=== PATIENT | male | born 1950 | race Caucasian/White ===

== ENCOUNTER 2017-01-26 04:27 | Inpatient (IN) | payer OTHER ==
[2017-01-26] VITALS (15 sets, daily range): BP systolic 86–130; BP diastolic 55–78
[~2017-01-26] VITALS: Ht 157.5 cm; Wt 64.9 kg
[~2017-01-26 04:27] MED LIST: ADVAIR HFA120 INHALA IH; AMIODARONE HCL400 MG PO; ASPIR 8181 M1 PO; ASPIRIN81 M1 PO; CARVEDILOL25 MG PO; CORDARONE200 MG PO; COREG12.5 M1 PO; COREG3.125 M1 PO; COUMADIN4 MG PO; COUMADIN5 MG PO; DIGOX125 MCG PO; LANOXIN,DIGI0.125 MG PO; LASIX40 MG PO; LISINOPRIL5 MG PO; LOW DOSE ASPIRI81 M2 PO; MECLIZINE HCL25 MG PO; NovoLOG Mix 70/30 Vi SC; PRAVASTATIN SOD20 MG PO; PROTONIX40 MG PO; SPIRIVA1 INHALATI IH; SPIRONOLACTONE25 MG PO; VENTOLIN HFA18 GM IH; WARFARIN SODIUM5 MG PO; ZANTAC150 MG PO; ZESTRIL,PRINIVI10 MG PO; ZESTRIL2.5 MG PO
[2017-01-26 05:24] LABS: CHLORIDE 101 mEq/L (99-109); POTASSIUM 3.9 mEq/L (3.7-5.4); SODIUM 133 mEq/L (136-147)
[2017-01-26 05:27] LABS: ANION GAP 18 MEQ/L (2-14)
[2017-01-26 05:27] LABS: BASE EXCESS -11.7 mEq/L (-3 to +3); METHEMOGLOBIN 0.9 % (0-1.5)
[2017-01-26 05:28] LABS: BICARBONATE 14.6 mEq/L (22-26); DEVICE VENT; FI02 100 %; MODE SPON; PCO2 34 mm Hg (35-45); PEEP 5 CM/H20; PO2 387 mm Hg (80-100); PRES. SUPPORT 15 CM/H2O; SITE LB; TOTAL RESP RATE 23 resp/min; pH 7.24 (7.35-7.45)
[2017-01-26 05:29] LABS: GFR ESTIMATE (CALCULATED) 36 mL/min/
[2017-01-26 05:30] LABS: UREA NITROGEN (BUN) 37 mg/dL (9-23)
[2017-01-26 05:36] LABS: GLUCOSE 413 mg/dL (70-99); TROP-I INTERPRETATION NEGATIVE; TROPONIN-I 0.02 ng/mL (0.0-0.30)
[2017-01-26 06:20] LABS: ADD MIUA? YES; BILIRUBIN NEGATIVE; BLOOD NEGATIVE; COLOR STRAW ((YELLOW)); GLUCOSE (STRIP) >=500; KETONES NEGATIVE; LEUKOCYTES MODERATE; NITRITE NEGATIVE; PROTEIN (STRIP) 100; SPECIFIC GRAVITY 1.007 (1.000-1.030); UROBILINOGEN 0.2 MG/DL (0.2-1.0)
[2017-01-26 06:45] LABS: RED BLOOD CELLS NONE SEEN /HPF (0-5)
[2017-01-26 06:46] LABS: HEMATOCRIT 55.1 % (38.0-50.0); MCH 28.1 PG (29.0-34.0); MCHC 31.2 G/DL (30.0-36.0); MEAN PLAT.VOLUME 11.5 uM^3 (9.0-12.4); PLATELET COUNT 202 K/uL (156-360); RBC DIS.WIDTH-CV 15.4 % (11.8-14.6); RBC DIS.WIDTH-SD 49.6 % (39-53); RED BLOOD COUNT 6.12 M/uL (4.00-5.50)
[2017-01-26 06:46] LABS: BACTERIA 1+ /HPF; EPITHELIAL CELLS RARE /HPF; MUCUS NONE SEEN /LPF; UCUL ADDED? NO
[2017-01-26 07:29] LABS: POINT-OF-CARE METER ID UU14100415
[2017-01-26 07:36] LABS: INTER. NORMALIZED RATIO 1.9; PTT 32.4 (25-32)
[2017-01-26 07:51] LABS: Estimated Average Glucose 120 mg/dL (70-123); HEMOGLOBIN A1c (GLYCOHEMOGLOB) 5.8 % HGB (Below 5.7)
[2017-01-26 07:54] LABS: ANION GAP 13 MEQ/L (2-14); CHLORIDE 100 MEQ/L (99-109); SAMPLE HEMOLYSIS CHECK 0; SAMPLE ICTERIC CHECK 0; SAMPLE LIPEMIA CHECK 0; SODIUM 131 MEQ/L (136-147)
[2017-01-26 08:06] LABS: POTASSIUM 4.7 MEQ/L (3.7-5.4)
[2017-01-26] MEDS ORDERED: METFORMIN HCL500 MG PO (08:31)
[2017-01-26] MEDS ORDERED: ATORVASTATIN CA20 MG PO (08:31)
[2017-01-26 08:38] LABS: POINT-OF-CARE METER ID UU14100415
[2017-01-26 09:44] LABS: POINT-OF-CARE METER ID UU14100415
[2017-01-26 09:45] LABS: GFR ESTIMATE (CALCULATED) 38 mL/min/; UREA NITROGEN (BUN) 39 mg/dL (9-23)
[2017-01-26 09:50] LABS: GLUCOSE 442 mg/dL (70-99)
[2017-01-26 10:29] LABS: BASOPHIL COUNT 0.1 K/uL (0-0.1); EOSINOPHIL (%) 2.2 % (0-5); EOSINOPHIL COUNT 0.5 K/uL (0-0.3); IMMATURE GRANULOCYTE (%) 0.7 % (0.0-0.7); IMMATURE GRANULOCYTE COUNT 0.1 K/uL; INSTRUMENT ABS NEUTROPHIL CT 7.9 K/uL; LYMPHOCYTE COUNT 10.4 K/uL (1.0-2.8); MONOCYTE (%) 4.9 % (3-12); NEUTROPHIL (%) 39.7 % (45-76); NEUTROPHIL COUNT 7.9 K/uL (1.8-6.4)
[2017-01-26 12:05] LABS: METH RESISTANT S AUREUS PCR NEGATIVE (NEGATIVE); PROBE CHECK PASS; SPECIMEN PROCESSING CONTROL PASS
[2017-01-26 12:33] LABS: POTASSIUM 5.2 mEq/L (3.7-5.4)
[2017-01-26 12:36] LABS: ANION GAP 11 MEQ/L (2-14)
[2017-01-26 12:39] LABS: CHLORIDE 112 mEq/L (99-109); GFR ESTIMATE (CALCULATED) 43 mL/min/; GLUCOSE 96 mg/dL (70-99); SODIUM 138 mEq/L (136-147)
[2017-01-26 12:40] LABS: UREA NITROGEN (BUN) 42 mg/dL (9-23)
[2017-01-26 14:09] LABS: MAGNESIUM 2.2 mg/dL (1.3-2.7)
[2017-01-26 16:05] LABS: POINT-OF-CARE USER ID 606021424
[2017-01-26 18:25] LABS: TROP-I INTERPRETATION NEGATIVE; TROPONIN-I 0.11 ng/mL (0.0-0.30)
[2017-01-26 18:29] LABS: POINT-OF-CARE USER ID 606021424
[2017-01-26 18:31] LABS: CK-MB 5.1 ng/mL (0.0-4.9)
[2017-01-26 18:34] LABS: CREATINE KINASE 126 IU/L (1-294); TOTAL CK 126 IU/L (1-294)
[2017-01-27] VITALS (13 sets, daily range): BP systolic 83–132; BP diastolic 34–68
[2017-01-27 01:16] LABS: CREATINE KINASE 126 IU/L (1-294); TOTAL CK 126 IU/L (1-294)
[2017-01-27 01:22] LABS: TROP-I INTERPRETATION NEGATIVE
[2017-01-27 01:24] LABS: CK-MB 5.6 ng/mL (0.0-4.9)
[2017-01-27 06:03] LABS: TROP-I INTERPRETATION NEGATIVE; TROPONIN-I 0.07 ng/mL (0.0-0.30)
[2017-01-27 06:18] LABS: EOSINOPHIL (%) 1.2 % (0-5); EOSINOPHIL COUNT 0.1 K/uL (0-0.3); HEMATOCRIT 40.3 % (38.0-50.0); IMMATURE GRANULOCYTE (%) 0.4 % (0.0-0.7); INSTRUMENT ABS NEUTROPHIL CT 6.7 K/uL; LYMPHOCYTE COUNT 1.9 K/uL (1.0-2.8); MCHC 33.3 G/DL (30.0-36.0); MEAN PLAT.VOLUME 10.4 uM^3 (9.0-12.4); MONOCYTE (%) 10.2 % (3-12); NEUTROPHIL (%) 68.7 % (45-76); NEUTROPHIL COUNT 6.7 K/uL (1.8-6.4); RBC DIS.WIDTH-CV 14.7 % (11.8-14.6); RBC DIS.WIDTH-SD 45.3 % (39-53)
[2017-01-27 06:21] LABS: MCV 84.1 FL (86-99); RED BLOOD COUNT 4.79 M/uL (4.00-5.50); WHITE BLOOD COUNT 9.7 K/uL (4.1-10.2)
[2017-01-27 06:29] LABS: INTER. NORMALIZED RATIO 2.2; PROTHROMBIN TIME 22.7 (9.2-11.2)
[2017-01-27 06:41] LABS: CK-MB 4.1 ng/mL (0.0-4.9)
[2017-01-27 07:18] LABS: ANION GAP 9 MEQ/L (2-14); CHLORIDE 103 MEQ/L (99-109); CREATINE KINASE 79 IU/L (1-294); GFR ESTIMATE (CALCULATED) 50 mL/min/; GLUCOSE 118 mg/dL (70-99); MAGNESIUM 1.9 mg/dl (1.3-2.7); SAMPLE HEMOLYSIS CHECK 0; SAMPLE ICTERIC CHECK 0; SAMPLE LIPEMIA CHECK 0; SODIUM 137 MEQ/L (136-147); TOTAL CK 79 IU/L (1-294); UREA NITROGEN (BUN) 30 mg/dL (9-23)
[2017-01-27 07:42] LABS: INTERNAL CONTROL VALID? YES
[2017-01-27 13:26] LABS: CREATINE KINASE 99 IU/L (1-294); TOTAL CK 99 IU/L (1-294)
[2017-01-27 13:31] LABS: TROP-I INTERPRETATION NEGATIVE; TROPONIN-I 0.04 ng/mL (0.0-0.30)
[2017-01-27 13:33] LABS: CK-MB 2.8 ng/mL (0.0-4.9)
[2017-01-27 14:26] LABS: PLATELET COUNT 129 K/uL (156-360)
[2017-01-28] VITALS (7 sets, daily range): BP systolic 99–130; BP diastolic 52–75
[2017-01-28 06:20] LABS: EOSINOPHIL (%) 2.4 % (0-5); EOSINOPHIL COUNT 0.2 K/uL (0-0.3); HEMATOCRIT 37.8 % (38.0-50.0); IMMATURE GRANULOCYTE (%) 0.4 % (0.0-0.7); INSTRUMENT ABS NEUTROPHIL CT 4.8 K/uL; LYMPHOCYTE COUNT 1.7 K/uL (1.0-2.8); MCHC 33.3 G/DL (30.0-36.0); MEAN PLAT.VOLUME 9.7 uM^3 (9.0-12.4); MONOCYTE (%) 12.2 % (3-12); NEUTROPHIL (%) 62.3 % (45-76); NEUTROPHIL COUNT 4.8 K/uL (1.8-6.4); PLATELET COUNT 124 K/uL (156-360); RBC DIS.WIDTH-CV 14.6 % (11.8-14.6); RBC DIS.WIDTH-SD 44.5 % (39-53); WHITE BLOOD COUNT 7.8 K/uL (4.1-10.2)
[2017-01-28 06:29] LABS: INTER. NORMALIZED RATIO 2.3; PROTHROMBIN TIME 23.8 (9.2-11.2)
[2017-01-28 06:50] LABS: ANION GAP 6 MEQ/L (2-14); CHLORIDE 103 MEQ/L (99-109); GFR ESTIMATE (CALCULATED) > 59 mL/min/; GLUCOSE 89 mg/dL (70-99); POTASSIUM 3.9 MEQ/L (3.7-5.4); SAMPLE HEMOLYSIS CHECK 0; SAMPLE ICTERIC CHECK 0; SAMPLE LIPEMIA CHECK 0; SODIUM 138 MEQ/L (136-147); UREA NITROGEN (BUN) 24 mg/dL (9-23)
[2017-01-28 06:51] LABS: MAGNESIUM 2.3 mg/dl (1.3-2.7)
[2017-01-28 10:33] LABS: Estimated Average Glucose 123 mg/dL (70-123); HEMOGLOBIN A1c (GLYCOHEMOGLOB) 5.9 % HGB (Below 5.7)
[2017-01-29 04:08] VITALS: BP 123/68
[2017-01-29 06:26] LABS: EOSINOPHIL (%) 3.8 % (0-5); EOSINOPHIL COUNT 0.3 K/uL (0-0.3); HEMATOCRIT 39.1 % (38.0-50.0); IMMATURE GRANULOCYTE (%) 0.2 % (0.0-0.7); INSTRUMENT ABS NEUTROPHIL CT 4.9 K/uL; MCH 27.9 PG (29.0-34.0); MCV 84.4 FL (86-99); MEAN PLAT.VOLUME 10.5 uM^3 (9.0-12.4); MONOCYTE (%) 10.8 % (3-12); MONOCYTE COUNT 0.9 K/uL (0-0.8); NEUTROPHIL (%) 60.2 % (45-76); NEUTROPHIL COUNT 4.9 K/uL (1.8-6.4); PLATELET COUNT 141 K/uL (156-360); RBC DIS.WIDTH-CV 14.4 % (11.8-14.6); RBC DIS.WIDTH-SD 44.4 % (39-53); RED BLOOD COUNT 4.63 M/uL (4.00-5.50); WHITE BLOOD COUNT 8.1 K/uL (4.1-10.2)
[2017-01-29 06:38] LABS: INTER. NORMALIZED RATIO 1.9; PROTHROMBIN TIME 20.1 (9.2-11.2)
[2017-01-29 06:41] VITALS: BP 115/73
[2017-01-29 06:53] LABS: ANION GAP 5 MEQ/L (2-14); CHLORIDE 103 MEQ/L (99-109); GFR ESTIMATE (CALCULATED) > 59 mL/min/; GLUCOSE 122 mg/dL (70-99); SAMPLE HEMOLYSIS CHECK 0; SAMPLE ICTERIC CHECK 0; SAMPLE LIPEMIA CHECK 0; SODIUM 138 MEQ/L (136-147); UREA NITROGEN (BUN) 24 mg/dL (9-23)
[2017-01-29 11:33] VITALS: BP 121/88
[2017-01-29] MEDS ORDERED: LASIX40 MG PO (12:12)
[2017-01-29] MEDS ORDERED: CEFDINIR300 MG PO (12:14)
== END 2017-01-29 13:56 | disposition home or self-care (01) | DRG 189 ==
LOC: EME → EDBD 04:27 → 4WEST 07:43 → EDOF 07:43 → 4WEST 10:08 → 5EAST 01-28 13:54
PROVIDERS: Emergency Medicine; Hospitalist; Internal Medicine; Internal Medicine Nephrology; Psychiatry & Neurology Neurology
PROC: 5A09357 Assistance with Respiratory Ventilation, Less than 24 Consecutive Hours, Continuous Positive Airway Pressure (ICD-10-PCS; principal; 2017-01-26)
DX: J96.01 Acute respiratory failure with hypoxia (principal); J18.9 Pneumonia, unspecified organism; I50.1 Left ventricular failure, unspecified; E13.10 Other specified diabetes mellitus with ketoacidosis without coma; N17.9 Acute kidney failure, unspecified; E87.2 Acidosis; N39.0 Urinary tract infection, site not specified; I48.0 Paroxysmal atrial fibrillation; I13.0 Hypertensive heart and chronic kidney disease with heart failure and stage 1 through stage 4 chronic kidney disease, or unspecified chronic kidney disease; N18.9 Chronic kidney disease, unspecified; J44.9 Chronic obstructive pulmonary disease, unspecified; E83.39 Other disorders of phosphorus metabolism; E83.42 Hypomagnesemia; I25.2 Old myocardial infarction; Z79.01 Long term (current) use of anticoagulants
CPT/HCPCS: 36600; 71010; 80048; 80048 91; 81003; 82010; 82550; 82550 91; 82553; 82803; 82948; 83036; 83605; 83735; 83880; 84100; 84484; 85025; 85027; 85610; 85730; 87040; 87070; 87086; 87205; 87449; 87641; 87801; 93005; 94002; 94640; 94799; 99281; 99284; J0456; J0696; J1644; J1815; J1940; J1956; J3475; J7030; J7050; J7120; S0028